=== PATIENT | female | born 2005 | race Caucasian/White ===

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

== ENCOUNTER 2024-04-30 17:19 | Emergency (ER) | payer OTHER ==
[~2024-04-30 17:19] MED LIST changes: +CYCLOBENZAPRINE10 MG PO
[2024-04-30] MEDS ORDERED: AMOX-CLAV 875-1 EACH PO (19:25)
== END 2024-04-30 19:16 | disposition home or self-care (01) ==
LOC: ED 17:19
DX: J18.9 Pneumonia, unspecified organism (principal)

== ENCOUNTER 2024-05-24 23:33 | Emergency (ER) | payer OTHER ==
[~2024-05-24] VITALS: Ht 170.1 cm; Wt 131.5 kg
[~2024-05-24 23:33] MED LIST changes: +AMOX-CLAV 875-1 EACH PO
[2024-05-25] MEDS ORDERED: MELOXICAM15 MG PO (01:45)
== END 2024-05-25 02:39 | disposition home or self-care (01) ==
LOC: ED 23:33
DX: M25.561 Pain in right knee (principal); W00.0XXA Fall on same level due to ice and snow, initial encounter; Y93.89 Activity, other specified; Y92.89 Other specified places as the place of occurrence of the external cause; Y99.8 Other external cause status

== ENCOUNTER 2024-08-22 02:48 | Emergency (ER) | payer OTHER ==
[~2024-08-22] VITALS: Ht 170.1 cm; Wt 131.5 kg
[~2024-08-22 02:48] MED LIST changes: +MELOXICAM15 MG PO
[2024-08-22] MEDS ORDERED: diphenhydrAMINE hydrochloride 50 MG/ML VIAL IM ONE (03:05)
[2024-08-22] MEDS ORDERED: Dexamethasone Sodium Phospha 20 MG/5 ML VIAL IM ONE (03:05)
== END 2024-08-22 04:52 | disposition home or self-care (01) ==
LOC: ED 02:48
DX: L25.9 Unspecified contact dermatitis, unspecified cause (principal)

== ENCOUNTER 2024-08-24 19:47 | Emergency (ER) | payer OTHER ==
[~2024-08-24] VITALS: Ht 170.1 cm; Wt 127.0 kg
[2024-08-24] MEDS ORDERED: methylPREDNISolone sod succ 125 MG VIAL IM ONE (20:10)
== END 2024-08-24 20:53 | disposition home or self-care (01) ==
LOC: ED 19:47
DX: L25.9 Unspecified contact dermatitis, unspecified cause (principal); R60.0 Localized edema; Z79.899 Other long term (current) drug therapy